=== PATIENT | male | born 2000 | race Two or more races ===

== ENCOUNTER 2019-04-08 02:24 | Emergency (ER) | payer MEDICAID ==
[~2019-04-08] VITALS: Ht 177.8 cm; Wt 74.4 kg
[2019-04-08 02:34] VITALS: BP 147/93
== END 2019-04-08 04:39 | disposition left against medical advice (07) ==
LOC: ER 02:28
DX: F41.9 Anxiety disorder, unspecified (principal); Z53.21 Procedure and treatment not carried out due to patient leaving prior to being seen by health care provider

== ENCOUNTER 2019-04-08 16:06 | Emergency (ER) | payer MEDICAID ==
[~2019-04-08] VITALS: Ht 177.8 cm; Wt 74.8 kg
[2019-04-08 16:50] VITALS: BP 162/60
[2019-04-08] MEDS ORDERED: LORazepam 0.5 MG TAB PO ONE (19:15)
== END 2019-04-08 16:52 | disposition home or self-care (01) ==
LOC: ER 16:06
DX: F41.1 Generalized anxiety disorder (principal)
CPT/HCPCS: 82962